=== PATIENT | female | born 1980 | race Hispanic/Latino ===

== ENCOUNTER 2025-06-19 16:47 | Emergency (ER) | payer SELFPAY ==
[2025-06-19 17:51] LABS: Absolute Lymphocytes (CBC) 2.4 K/uL (0.7-4.9); Hematocrit 40.4 % (36.0-45.0); Hemoglobin 14.1 g/dL (12.0-15.0); MCH 31.0 pg (27.0-35.0); MCHC 34.9 g/dL (32.0-36.0); MCV 88.8 fL (80-100); MPV 9.6 fL (7.6-11.3); Nucleated RBC Absolute Count 0.0 (0-0); Nucleated Red Blood Cells % 0.1 % (0-0); RBC Red Blood Cell Count 4.55 M/uL (3.86-4.86); White Blood Count 8.60 thou/uL (4.3-10.9)
[2025-06-19 18:08] LABS: Sqamous Epithelial <5 /HPF (None Seen); Urine Culture Reflex Order NOT NEEDED; Urine Microscopic Reflex YN ORDER UMIC
[2025-06-19 18:24] LABS: ALT/SGPT 57 U/L (13-56); Albumin 3.4 g/dL (3.4-5.0); Albumin/Globulin Ratio 0.9 (1.1-1.8); Alkaline Phosphatase 78 U/L (45-117); Anion Gap 8.0 mEq/L (5.0-15.0); BUN Blood Urea Nitrogen 9 mg/dL (7-18); Globulin 3.9 g/dL (2.3-3.5); Glucose Level 125 mg/dL (74-106); Lipase 48 U/L (13-75); Potassium 5.0 mEq/L (3.5-5.1)
[2025-06-19 18:25] LABS: AST/SGOT 61 U/L (15-37); Troponin High Sensitivity < 3.0 pg/mL (<58.9)
--- NOTE | 2025-06-19 19:15 | RAD REPORT ---
EXAM: Chest Abdomen Pelvis W Cont CLINICAL INDICATION: Chest and abdominal pain TECHNIQUE: CT chest, abdomen and pelvis was performed, with 100 cc Isovue-300 IV contrast, as per de partment protocol. Axial, sagittal and coronal reconstructions were obtained. One or more of the following dose reduction techniques were used: Automated exposure control, adjustment of the mA and/o r kV according to the patient size, and/or iterative reconstruction. Unless otherwise specified, incidental findings do not require dedicated imaging follow-up. [id number]. Oral contrast not given. This limits evaluation of the bowel. COMPARISON: 2017 FINDINGS: Lungs are clear. No mediastinal or hilar lymphadenopathy. No pleural effusion.. No pericardial effusion. Fatty liver. Spleen, pancreas, adrenals and kidneys unremarkable. Cholecystectomy. Normal appendix. 6.3 cm simple appearing left ovarian cyst. 2.9 cm right ovarian cyst. No significant free fluid. There is no evidence of diverticulitis IMPRESSION: 6.3 cm left ovarian cyst. 2.9 cm right ovarian cyst. Ultrasound recommended
--- NOTE | 2025-06-19 19:15 | RAD REPORT ---
Procedure: Chest Single View HISTORY: Chest pain COMPARISON: none FINDINGS: The lungs appear clear of acute infiltrate. No significant pleural effusion noted. The heart is normal size. IMPRESSION: No acute abnormality is displayed.
--- NOTE | 2025-06-19 20:38 | RAD REPORT ---
EXAMINATION: Transvaginal Study Probe CLINICAL INDICATION: Pelvic pain. Ovarian mass TECHNIQUE: Real-time ultrasonography of the pelvis was performed transvaginally. Color and spectral D oppler evaluation of the ovaries was performed. COMPARISON: CT June 19, 2025. FINDINGS: The uterus measures 10 x 6 x 6 cm. A fibroid is not seen. The endometrial stripe measures 1.2 cm 6 cm cystic mass left adnexa appearing to contain low-level posterior echoes... Blood flow to left ov leon is present. 2 cm hemorrhagic cyst right ovary. Blood flow to right ovary seen. No significant fluid. IMPRESSION: 6 cm cystic mass left ovary may represent a hemorrhagic cyst. Another consideration is that the poste rior low level echoes represent artifact and that this is a simple cyst. Follow-up ultrasound in 3 months recommended for reevaluation.
--- NOTE | 2025-06-19 20:41 | EDPHYS ---
Physician Documentation [facility] Name: Denise Gallo Age: 44 yrs Sex: Female : 1980 Arrival Date: 06/19/2025 Time: 16:47 Bed 16 Private MD: ED Physician Erik Lu HPI: 06/19 17:17 This 44 yrs old Female presents to ER via Ambulatory with complaints of Pain rn on right side. 17:17 Patient reports pain on right flank. Has been happening for 2 weeks. Is intermittent. rn Denies any fever or chills. No cough. No chest pain. Reports radiates to the right lower quadrant of abdomen. Has had cholecystectomy in the past. No vomiting or diarrhea. Does report nausea. No blood in stool. No trauma.. Historical: - Allergies: 17:06 No Known Allergies; jb4 - PMHx: 17:06 None; jb4 - PSHx: 17:06 Cholecystectomy; jb4 - Immunization history:: Adult Immunizations up to date. - Infectious Disease History:: Denies. - Social history:: Smoking status: Patient denies any tobacco usage or history of. - Family history:: not pertinent. - Hospitalizations: : No recent hospitalization is reported. ROS: 17:17 Constitutional: Negative for fever, chills, and weight loss, Cardiovascular: Negative rn for chest pain, palpitations, and edema, Respiratory: Negative for cough, wheezing, and pleuritic chest pain, Abdomen/GI: Negative for abdominal pain, nausea, vomiting, diarrhea, and constipation, Back: Positive for right flank pain MS/Extremity: Negative for injury and deformity, Skin: Negative for injury, rash, and discoloration, Neuro: Negative for headache, weakness, numbness, tingling, and seizure, Exam: 17:17 Constitutional: This is a well developed, well nourished patient who is awake, alert, rn and in no acute distress. Ambulatory to room without assistance or difficulty Chest/axilla: No rib tenderness or crepitus Cardiovascular: Regular rate and rhythm. No pulse deficits. Respiratory: Speaking full sentences, unlabored. No increased work of breathing, no retractions or nasal flaring. Abdomen/GI: Soft, mild right flank tenderness and right lower quadrant tenderness. No rebound or guarding. No peritoneal signs. No masses. MS/ Extremity: Pulses equal, no cyanosis. Neuro: Awake and alert, GCS 15 17:32 ECG was reviewed by the Attending Physician. rn Vital Signs: 17:04 BP 108 / 65; Pulse 84; Resp 16; Pulse Ox 99% on R/A; Weight 79.38 kg; Height 5 ft. 1 jb4 in. ; Pain 8/10; 19:48 BP 103 / 58; Pulse 79; Resp 20; Pulse Ox 100% on R/A; jb4 20:30 BP 120 / 71; Pulse 89; Resp 20; Pulse Ox 100% ; jb4 17:04 Body Mass Index 32.62 (79.38 kg, 156 cm) jb4 17:04 Pain Scale: Adult jb4 MDM: 16:50 Medical Screening Exam initiated rn 19:38 Medical Screening Exam initiated [facility] 20:42 Differential diagnosis: nephrolithiasis, pyelonephritis, UTI, diverticulitis, nilo pancreatitis. Data reviewed: vital signs, nurses notes, lab test result(s), radiologic studies, CT scan, ultrasound. Consideration of Admission/Observation Escalation of care including admission/observation considered. I considered the following discharge prescriptions or medication management in the emergency department Medications were administered in the Emergency Department. See MAR. Independent interpretation of the following test(s) in the Emergency Department CT Scan: My interpretation is ct a/p. Radiology Department Ultrasound: My interpretation is us pelvis TV. Test considered but Not performed: MRI: NO MRCP. Care significantly affected by the following chronic conditions: Obesity. 06/19 16:59 Order name: CBC with Diff; Complete Time: 17:58 06/19 16:59 Order name: CMP; Complete Time: 18:30 06/19 16:59 Order name: Lipase; Complete Time: 18:30 06/19 16:59 Order name: Test, Urine; Complete Time: 18:30 06/19 16:59 Order name: UA Rfx Bill Cult if indicated; Complete Time: 18:30 06/19 16:59 Order name: Troponin HS; Complete Time: 18:30 06/19 16:59 Order name: CT Chest, Abdomen, Pelvis - W/Contrast; Complete Time: 19:46 06/19 16:59 Order name: XRAY Chest (1 view); Complete Time: 19:46 06/19 19:49 Order name: US Transvaginal Study (Probe); Complete Time: 20:39 nilo 06/19 16:59 Order name: EKG; Complete Time: 17:00 rn 06/19 16:59 Order name: IV Saline Lock; Complete Time: 17:57 rn 06/19 16:59 Order name: Labs collected and sent; Complete Time: 17:37 rn 06/19 16:59 Order name: Cardiac monitoring; Complete Time: 17:16 rn 06/19 16:59 Order name: EKG - Nurse/Tech; Complete Time: 17:16 rn 06/19 16:59 Order name: O2 Per Protocol; Complete Time: 17:08 rn 06/19 16:59 Order name: O2 Sat Monitoring; Complete Time: 17:08 rn EC:32 Rate is 86 beats/min. Rhythm is regular. QRS [place] is Normal. [place] interval is normal. QRS rn interval is normal. QT interval is normal. No Q waves. T waves are Normal. No ST changes noted. Clinical impression: Normal ECG. Interpreted by me. Reviewed by me. Administered Medications: No medications were administered Disposition Summary: 06/19/25 20:41 Discharge Ordered Notes: Location: Home nilo Problem: new nilo Symptoms: have improved nilo Condition: Stable nilo Diagnosis - Other ovarian cysts - bilateral hemorrhagic ovarian cyst, left 6 cm , left 2 cm nilo - Abdominal tenderness nilo Followup: nilo - With: Private Physician - When: 2 - 3 days - Reason: Recheck today's complaints, Continuance of care, Re-evaluation by your physician Followup: nilo - With: Toya Jauregui MD - When: 2 - 3 days - Reason: Recheck today's complaints, Re-evaluation by your physician Discharge Instructions: - Discharge Summary Sheet nilo - Abdominal Pain, Adult nilo - Ovarian Cyst nilo - Abdominal Pain, Adult, [id number] nilo - Ovarian Cyst, [id number] [facility] Forms: - Medication Reconciliation Form [facility] - Antibiotic Education nilo - Prescription Opioid Use [facility] - Patient Portal Instructions [facility] - Leadership Thank You Letter [facility] Prescriptions: - Ibuprofen 600 mg Oral Tablet - take 1 tablet ORAL route every 6 hours As needed take with food; 30 tablet; [facility] Refills: 0, Product Selection Permitted - Pepcid 20 mg Oral tablet - take 1 tablet ORAL route every 12 hours for 10 days; 42 tablet; Refills: 0, [facility] Product Selection Permitted - dicyclomine 20 mg Oral tablet - take 1 tablet ORAL route 4 times per day; 28 tablet; Refills: 0, Product nilo Selection Permitted Signatures: Dispatcher [employer] EDErik Ibarra MD MD cha Nieto, Roman, MD MD rn Bryson, James, RN RN jb4 Corrections: (The following items were deleted from the chart) 17:00 17:00 CBC+H.LAB.BRZ ordered. EDMS EDMS 17:00 17:00 COMPREHENSIVE METABOLIC PANEL+C.LAB.BRZ ordered. EDMS EDMS 17:00 17:00 LIPASE+C.LAB.BRZ ordered. EDMS EDMS 17:00 17:00 Test, Urine+UC.LAB.BRZ ordered. EDMS EDMS 17:00 17:00 UA Rfx Bill Cult if indicated+U.LAB.BRZ ordered. EDMS EDMS 17:00 17:00 Troponin High Sensitivity+C.LAB.BRZ ordered. EDMS EDMS
--- NOTE | 2025-06-19 20:41 | ER ---
Nurse's Notes [facility] Name: Denise Gallo Age: 44 yrs Sex: Female : 1980 Arrival Date: 06/19/2025 Time: 16:47 Bed 16 Private MD: Diagnosis: Other ovarian cysts-bilateral hemorrhagic ovarian cyst, left 6 cm , left 2 cm;Abdominal tenderness Presentation: 06/19 17:05 Chief complaint: Patient states: RLQ pain X 2 weeks. Coronavirus screen: At this time, iw the client does not indicate any symptoms associated with coronavirus-19. Ebola Screen: No symptoms or risks identified at this time. Initial Sepsis Screen: Does the patient meet any 2 criteria? No. Patient's initial sepsis screen is negative. Does the patient have a suspected source of infection? No. Patient's initial sepsis screen is negative. Risk Assessment: Do you want to hurt yourself or someone else? Patient reports no desire to harm self or others. Onset of symptoms was June 05, 2025. 17:05 Method Of Arrival: Ambulatory iw 17:06 Acuity: ANASTACIO 3 iw Historical: - Allergies: 17:06 No Known Allergies; jb4 - PMHx: 17:06 None; jb4 - PSHx: 17:06 Cholecystectomy; jb4 - Immunization history:: Adult Immunizations up to date. - Infectious Disease History:: Denies. - Social history:: Smoking status: Patient denies any tobacco usage or history of. - Family history:: not pertinent. - Hospitalizations: : No recent hospitalization is reported. Screenin:07 [facility] ED Fall Risk Assessment (Adult) History of falling in the last 3 months, jb4 including since admission No falls in past 3 months (0 pts) Confusion or Disorientation No (0 pts) Intoxicated or Sedated No (0 pts) Impaired Gait No (0 pts) Mobility Assist Device Used No (0 pt) Altered Elimination No (0 pt) Score/Fall Risk Level 0 - 2 = Low Risk Oriented to surroundings, Maintained a safe environment. Abuse screen: Denies threats or abuse. Nutritional screening: No deficits noted. Tuberculosis screening: No symptoms or risk factors identified. Assessment: 17:07 General: Appears in no apparent distress. comfortable, Behavior is calm, cooperative, jb4 appropriate for age. Pain: Complains of pain in anterior aspect of right lateral abdomen Pain does not radiate. Pain currently is 8 out of 10 on a pain scale. Neuro: Level of Consciousness is awake, alert, obeys commands, Oriented to person, place, time, situation. Cardiovascular: Patient's skin is warm and dry. Respiratory: Airway is patent Respiratory effort is even, unlabored, Respiratory pattern is regular, symmetrical. Derm: Skin is intact, Skin is pink, warm \T\ dry. Musculoskeletal: Circulation, motion, and sensation intact. Range of motion: intact in all extremities. 18:30 Reassessment: Patient appears in no apparent distress at this time. Patient and/or jb4 family updated on plan of care and expected duration. Pain level reassessed. Patient is alert, oriented x 3, equal unlabored respirations, skin warm/dry/pink. 19:48 Reassessment: Patient appears in no apparent distress at this time. Patient and/or jb4 family updated on plan of care and expected duration. Pain level reassessed. Patient is alert, oriented x 3, equal unlabored respirations, skin warm/dry/pink. 20:59 Reassessment: Patient appears in no apparent distress at this time. Patient and/or jb4 family updated on plan of care and expected duration. Pain level reassessed. Patient is alert, oriented x 3, equal unlabored respirations, skin warm/dry/pink. Pt discharged using television audio engineer José ([id number]). Vital Signs: 17:04 BP 108 / 65; Pulse 84; Resp 16; Pulse Ox 99% on R/A; Weight 79.38 kg; Height 5 ft. 1 jb4 in. ; Pain 8/10; 19:48 BP 103 / 58; Pulse 79; Resp 20; Pulse Ox 100% on R/A; jb4 20:30 BP 120 / 71; Pulse 89; Resp 20; Pulse Ox 100% ; jb4 17:04 Body Mass Index 32.62 (79.38 kg, 156 cm) jb4 17:04 Pain Scale: Adult jb4 ED Course: 16:49 Patient arrived in ED. ts1 16:50 Oscar Freitas MD is Attending Physician. rn 17:06 Triage completed. iw 17:06 Arm band placed on. iw 17:07 Patient has correct armband on for positive identification. Bed in low position. Call jb4 light in reach. Side rails up X 1. Provided Education on: plan of care. 17:07 No provider procedures requiring assistance completed. jb4 17:37 CBC with Diff Sent. jb4 17:37 CMP Sent. jb4 17:37 Lipase Sent. jb4 17:37 Test, Urine Sent. jb4 17:37 Troponin HS Sent. jb4 17:57 Inserted saline lock: 20 gauge in right antecubital area, using aseptic technique. rk3 Flushed with 10 mL NS. 18:27 XRAY Chest (1 view) In Process Unspecified. EDMS 18:57 Quang Calvillo, RN is Primary Nurse. jb4 19:02 CT Chest, Abdomen, Pelvis - W/Contrast In Process Unspecified. EDMS 19:11 Attending Physician role handed off by Oscar Freitas MD [facility] 19:11 Erik Lu MD is Attending Physician. [facility] 20:21 US Transvaginal Study (Probe) In Process Unspecified. EDMS 20:40 Toya Jauregui MD is Referral Physician. [facility] 21:01 IV discontinued, intact, bleeding controlled, No redness/swelling at site. Pressure jb4 dressing applied. Administered Medications: No medications were administered Medication: 17:07 VIS not applicable for this client. jb4 Outcome: 20:41 Discharge ordered by . [facility] 21:01 Discharged to home ambulatory, jb4 21:01 Condition: stable 21:01 Discharge instructions given to patient, Instructed on discharge instructions, follow up and referral plans. no drinking with medication, medication usage, Demonstrated understanding of instructions, follow-up care, medications, Prescriptions given X 3, 21:01 Patient left the ED. jb4 Signatures: Dispatcher [employer] EDOH Erik Lu MD MD cha Williams, Irene, RN ALEXY Oscar Freitas MD MD rn Bryson, James, RN RN jb4 Cecilia Orellana PAS PAS ts1 Milo Denney rk3 Corrections: (The following items were deleted from the chart) 19:50 19:48 Pulse 79bpm; Resp 20bpm; Pulse Ox 100% RA; jb4 jb4 21:00 20:59 Reassessment: Patient appears in no apparent distress at this time. Patient jb4 and/or family updated on plan of care and expected duration. Pain level reassessed. Patient is alert, oriented x 3, equal unlabored respirations, skin warm/dry/pink. jb4
[2025-06-19 21:34] VITALS: O2SAT 100
[2025-06-19 21:36] VITALS: BP 120/71
== END 2025-06-19 21:01 | disposition home or self-care (01) ==
LOC: ER 16:47
DX: N83.202 Unspecified ovarian cyst, left side (principal)
CPT/HCPCS: 36415; 71045; 71260; 74177; 76830; 80053; 81001; 81025; 83690; 84484; 85025; 93005; 99284; Q9967